=== PATIENT | female | born 1965 | race Caucasian/White ===

== ENCOUNTER 2023-11-07 12:46 | Emergency (ER) | payer OTHER, SELFPAY ==
[2023-11-07 13:19] VITALS: BP 132/77; PULSE 78; RESP 18; TEMP 36.6; O2SAT 96; BMI 33.7
--- NOTE | 2023-11-07 13:44 | CRLHL7_ITS ---
For Patients: As a result of the Century Cures Act, medical imaging exams and procedure reports are released immediately into your electronic medical record. You may view this report before your referring provider. If you have questions, please contact your health care provider. Indication: Trauma. Technique: Left knee, 3 views. Comparison: None. Findings/Impression: Bones: Alignment is normal. No displaced fractures or bone lesions. Joint spaces: Mild tricompartmental degenerative changes. Small joint effusion. Soft tissues: Unremarkable. Dictated by Lucio Thomas MD @ 11/07/2023 2:43:08 PM (Electronically Signed)
--- NOTE | 2023-11-07 13:47 | ED_ITS ---
HPI - General Adult General Date Seen: 11/07/23 Chief complaint: Extremity Pain/Injury, Lower Stated complaint: LT lower extremity pain Time Seen by Provider: 11/07/23 13:46 History of Present Illness HPI narrative: 58-year-old female presenting to the ER today for left knee pain. It has been present for about the past 10 days or so. No known injury. She says she has a known history of arthritis affecting her neck and spine. She her doctor, Dr. Olguin, at the [facility] has done x-rays of her knees and she has been told that she does not have much arthritis there. About a week and half ago her left knee really started hurting. It seems like it hurts deep inside the knee. It is not too painful while she is sitting down and she is able to flex and extend without pain however whenever she gets up to walk she gets a burning pain inside her knee. It is not been swollen. Also Her calf is not been swollen. No redness. No pain down into her calf for up into her quads or hamstring or thigh. No fevers or chills. She has been trying to treat the pain with naproxen 500 mg tablets twice daily but she says they are just not helping. She does a lot of walking and bending and twisting and lifting at work and. The pain got to the point today where she just could not take it so she came here to the ER. Related Data Home Medications ?Medication ?Instructions ?Recorded ?Confirmed amlodipine 5 mg tablet 5 mg PO DAILY 11/07/23 11/07/23 clonidine HCl 0.1 mg tablet 0.1 mg PO QHS 11/07/23 11/07/23 lorazepam 0.5 mg tablet 0.5 mg PO BID-TID PRN 11/07/23 11/07/23 metformin 1,000 mg tablet 1,000 mg PO DAILY 11/07/23 11/07/23 metoprolol tartrate 25 mg tablet 25 mg PO BID 11/07/23 11/07/23 multivitamin-ferrous 1 tab PO DAILY 11/07/23 11/07/23 fumarate-folic acid 18 mg-400 mcg tablet (One Daily Multivitamin with Iron (folic acid)) naproxen 500 mg tablet 500 mg PO Q8-12H PRN 11/07/23 11/07/23 paroxetine HCl 20 mg tablet (Paxil) 60 mg PO DAILY 11/07/23 11/07/23 pregabalin 75 mg capsule 75 mg PO BID 11/07/23 11/07/23 trazodone 50 mg tablet 50 mg PO DAILY 11/07/23 11/07/23 Allergies Allergy/AdvReac Type Severity Reaction Status Date / Time aspartame Allergy Severe Anaphylaxis Verified 11/07/23 13:35 Penicillins Allergy Severe Anaphylaxis Verified 11/07/23 13:35 Iodinated Contrast Media Allergy Intermediate Rash Verified 11/07/23 13:35 lisinopril Allergy Intermediate Hives Verified 11/07/23 13:35 [facility] Social History Smoking Status: Unknown if ever smoked How often do you have a drink containing alcohol: never How often do you have six or more drinks on one occasion: Never AUDIT-C Alcohol total score: 0 Non-prescribed substance use: denies use Exam Narrative: Exam Narrative: Constitutional: Appears well-developed and well-nourished. Non-toxic appearing. Very polite. HENT: Head: Atraumatic. No signs of injury. Nose: No nasal discharge. Mouth/Throat: Mucous membranes are moist. Pharynx is normal. Tonsils symmetric. Uvula midline. Airway patent. Eyes: Conjunctivae normal and EOM are normal. Pupils are equal, round, and reactive to light. Right eye exhibits no discharge. Left eye exhibits no discharge. No icterus. Neck: Normal range of motion. Neck supple. No adenopathy. No stridor. Cardiovascular: Normal rate and regular rhythm. No murmur heard. No murmurs, rubs, or gallops. Brisk capillary refill Pulmonary/Chest: Effort normal. No stridor. No respiratory distress. No wheezes.No rhonchi. No rales. No retractions. Abdominal: Soft. Bowel sounds are normal. No distension. No mass. There is no tenderness. There is no rebound and no guarding. Musculoskeletal: Upper extremities normal bilaterally-Normal range of motion. No edema. No tenderness. No deformity. Pelvis stable. Hips nontender. Right lower extremity: Quad, hamstring, femur, knee, patella, calf, kruse, ankle, foot nontender. Normal range of motion in her knee. No ligamentous laxity affecting ACL, PCL, MCL, LCL. Left lower extremity: Quad, hamstring, femur, kruse, calf, ankle, Achilles, foot are nontender. Normal inspection of the knee. No warmth. No rash. No bruising. No visible or palpable joint effusion. She has full range of motion from full extension to just beyond 90?. No ligamentous laxity of the ACL, PCL, LCL, MCL. No clicking or grinding of the joint during exam. No palpable effusion. No redness. No warmth. When she ambulates she has pain in the knee and limps on her left leg.. Neurological: Alert. Normal strength. No cranial nerve deficit or sensory deficit. Coordination normal. GCS eye subscore is 4. GCS verbal subscore is 5. GCS motor subscore is 6. Skin: Skin is warm. No rash noted. Const: Vital Signs, click to edit/add: Vital Signs - 24 hr 11/07/23 13:19 Temperature 97.8 F Pulse Rate [Pulse Oximeter] 78 Respiratory Rate 18 Blood Pressure [Ri t Upper Arm] 132/77 Pulse Oximetry 96 Oxygen Delivery Me thod Room Air Course Vital Signs Vital signs: Initial Vital Signs Temperature 97.8 F 11/07/23 13:19 Temperature Source Temporal Artery Scan 11/07/23 13:19 Pulse Rate 78 11/07/23 13:19 Pulse Rhythm Regular 11/07/23 13:19 Pulse Strength 3+ Normal 11/07/23 13:19 Respiratory Rate 18 11/07/23 13:19 Blood Pressure 132/77 11/07/23 13:19 Blood Pressure Mean 95 11/07/23 13:19 Blood Pressure Position Sitting 11/07/23 13:19 Pulse Oximetry 96 11/07/23 13:19 Oxygen Delivery Method Room Air 11/07/23 13:19 Vital Signs Temperature 97.8 F 11/07/23 13:19 Pulse Rate 78 11/07/23 13:19 Respiratory Rate 18 11/07/23 13:19 Blood Pressure 132/77 11/07/23 13:19 Pulse Oximetry 96 11/07/23 13:19 Oxygen Delivery Method Room Air 11/07/23 13:19 Temperature 97.8 F 11/07/23 13:19 Pulse Rate 78 11/07/23 13:19 Respiratory Rate 18 11/07/23 13:19 Blood Pressure 132/77 11/07/23 13:19 Pulse Oximetry 96 11/07/23 13:19 Oxygen Delivery Method Room Air 11/07/23 13:19 Medical Decision Making MDM Narrative Medical decision making narrative: Very polite 58-year-old female presenting to the ER today with a 10 day history of atraumatic left knee pain. X-rays are obtained by nurses at triage and are negative for any acute fracture. There is mild tricompartmental arthritis per Radiology on the x-ray as well as a small joint effusion. Suspect that she may have a flare of arthritis in her knee with an associated refusing causing her pain. Other causes for the joint effusion are considered. There is no redness or warmth to suggest a septic joint. Consider possible gout. She does report that she has a history of elevated uric acid levels on blood tests on her primary office. However she does not have redness or warmth to the joint as he would typically expect with gout. In any case although there is a small e ffusion noted on x-ray I am unable to appreciate any effusion on my clinical exam and I do not think there would be enough fluid here for me to successfully attempt arthrocentesis. Will arrange outpatient follow-up with orthopedics for further evaluation. Perhaps they would be able to do arthrocentesis and/or a cortisone injection, as needed. Patient has supplies of a knee brace and crutches at home and does not want post from the ER. She will continue on naproxen for pain control. We discussed prescription pain killers but the patient declines. She may add acetaminophen if needed. Also discussed rest, ice. Patient does not want a note for work. She has a shift at work tomorrow and has the remainder of the weekend off and she think should be able to get through that. She is agreeable to the plan of care for outpatient orthopedic follow-up. Imaging Data right knee xray: Attestation: I have reviewed the pertinent imaging results. My impression: No acute fracture. Radiologist's impression: Findings/Impression: Bones: Alignment is normal. No displaced fractures or bone lesions. Joint spaces: Mild tricompartmental degenerative changes. Small joint effusion. Soft tissues: Unremarkable. Discharge Plan Discharge Clinical Impression: Acute knee pain Patient Disposition: Home, Self-Care Condition: Stable Instructions: Crutch Instructions (ED), Knee Pain (ED) Additional Instructions: please follow-up with the [facility]. Please call [phone] today to schedule an ER follow-up visit. Please come back to the ER right away if you have any problems especially worsening or severe uncontrolled pain, new redness or increasing swelling of your knee, if you have fever or chills, or any other problems. Use your crutches from home or knee brace to help support your knee and rested. Continue using naproxen twice daily as needed. You can also add Tylenol if needed for pain. Prescriptions: No Action naproxen 500 mg tablet 500 mg PO Q8-12H PRN One Daily Multivit-Iron(folic) 18-400 mg-mcg tablet 1 tab PO DAILY trazodone 50 mg tablet 50 mg PO DAILY pregabalin 75 mg capsule 75 mg PO BID paroxetine HCl [Paxil] 20 mg tablet 60 mg PO DAILY lorazepam 0.5 mg tablet 0.5 mg PO BID-TID PRN clonidine HCl 0.1 mg tablet 0.1 mg PO QHS amlodipine 5 mg tablet 5 mg PO DAILY metoprolol tartrate 25 mg tablet 25 mg PO BID metformin 1,000 mg tablet 1,000 mg PO DAILY Stand Alone Forms: [employer] Info Instructions
== END 2023-11-07 15:36 | disposition home or self-care (01) ==
PROVIDERS: Emergency Provider Emergency Medicine; PCP Physician Assistant
DX: M25.562 Pain in left knee (principal)
CPT/HCPCS: 73562; 99282; 99283

== ENCOUNTER 2023-11-19 09:53 | Outpatient (CLI) | payer OTHER, SELFPAY ==
--- NOTE | 2023-11-19 10:15 | MR_ITS ---
[address] [address] Phone:?[phone] Fax:?[phone] Referring Physician Information: Melchor Delgado [address] [facility] [address] Phone:?[phone] Fax:?[phone] Patient:Leila Vanegas D.O.B:?1965 Sex:?Female Phone:?[phone] [facility] MRN:?[id number] Exam Date:?11/19/2023 EXAM: MRI of the LEFT KNEE, without contrast CLINICAL INFORMATION: Female, 58 years old, with left knee pain. INDICATION: Evaluate for internal derangement. PRIOR SURGERY: None reported. PLAIN FILMS: None available. COMPARISONS: No prior MRIs available. TECHNICAL INFORMATION: Using a 1.5T MR scanner and a localizing surface coil: sagittals: PD, PDFS coronals: PD, T2FS axials: PD, PDFS SEDATION: None CONTRAST: None FINDINGS: Knee joint: Effusion: Mild-moderate left knee effusion, with synovitis. Popliteal cyst: Small, unruptured popliteal (Dunlap's) cyst. Loose bodies: None. Subcutaneous and extra-articular soft tissues: Mild-moderate anterior subcutaneous soft tissue swelling extending from the patella to the tibial tubercle. Ligaments: ACL: Intact ACL anteromedial and posterolateral bundles, without sprain or tear. PCL: Intact PCL, without acute or chronic injury. MCL: Intact MCL superficial and deep layers, without injury. LCL: Intact LCL, without injury. Posterolateral corner: No posterolateral corner soft tissue injury. Popliteus, biceps femoris, iliotibial band, popliteofibular ligament and lateral gastrocnemius are intact. Posteromedial corner: No posteromedial corner soft tissue injury. Semimembranosus, pes anserine tendons and posterior oblique ligament are without injury, tendinopathy or bursitis. Extensor mechanism: Patellar tendon: Intact, without tendinopathy. Quadriceps tendon: Intact, without tendinopathy. Retinacula: Medial and lateral retinacula are intact. Fat pads: Mild edema-like signal throughout the knee fat pads, in keeping with synovitis. Medial compartment: Medial meniscus: Oblique horizontal undersurface tearing of the posterior horn and body of the medial meniscus measuring 1.9 cm (sagittal PDFS series 6 images 9-13 and coronal STIR series 8 images 19-21). Additionally, there is abnormal signal and irregularity throughout the posterior meniscal capsular junction. There is also a 1.7 x 0.6 x 0.9 cm region of poorly defined soft tissue thickening adjacent to the anterior horn/root of the medial meniscus (sagittal PD series 5 image 13 and coronal PD series 7 image 10). No meniscal extrusion or parameniscal cyst. Medial femoral condyle & tibial plateau: Broad-based grade II/III chondromalacia throughout the central, weightbearing aspect of the medial compartment, with mild marginal osteophytosis. Lateral compartment: Lateral meniscus: Intrasubstance degeneration fraying of the posterior root of the lateral meniscus, without discrete lateral meniscal tearing. Lateral femoral condyle: No chondromalacia or osteochondral abnormality. Lateral tibial plateau: No chondromalacia or osteochondral abnormality. Patellofemoral joint: Patella: Broad-based grade II/III chondromalacia of the medial facet and median ridge of the patella, with mild marginal osteophytosis. Trochlea: Broad-based grade II/III chondromalacia of the medial facet and central sulcus, with mild marginal osteophytosis. Proximal tibiofibular joint: Unremarkable, without evidence of ligament sprain injury, joint effusion or adjacent marrow edema. Bones: No stress/occult fractures or other marrow edema/pathology. IMPRESSION: 1. Oblique horizontal undersurface tear of the posterior horn and body of the medial meniscus measuring 1.9 cm, with a superimposed posterior meniscocapsular junction sprain. Additionally, there is a 1.7 x 0.6 x 0.9 cm region of poorly defined soft tissue thickening adjacent to the anterior horn/root, which could reflect scar tissue or nodular synovitis/PVNS. 2. Mild osteoarthritis of the medial and patellofemoral compartments. 3. Mild-moderate knee joint effusion with synovitis and a small, unruptured popliteal (Dunlap's) cyst. 4. No lateral meniscal tear or osteochondral abnormality of the lateral compartment. 5. No cruciate or collateral ligament sprain/tear. BC Electronically signed on 11/19/2023 2:45:00 PM by Harpreet Smith M.D.
== END 2023-11-19 09:54 | disposition home or self-care (01) ==
LOC: MRI 09:53
PROVIDERS: PCP Physician Assistant; Visit Provider Physician Assistant
DX: M25.562 Pain in left knee (principal); S83.241A Other tear of medial meniscus, current injury, right knee, initial encounter; M17.11 Unilateral primary osteoarthritis, right knee; M25.461 Effusion, right knee
CPT/HCPCS: 73721

== ENCOUNTER 2023-12-13 06:57 | Day surgery (SDC) | payer OTHER, SELFPAY ==
[2023-12-13] VITALS (11 sets, daily range): BP systolic 113–150; BP diastolic 58–93; PULSE 67–75; RESP 16; TEMP 36.4–37.2; O2SAT 90–95; BMI 34.2
[2023-12-13] MEDS: LACTATED RINGERS 1000 ML 1,000 ML 100 ML IV (08:00)
[2023-12-13] MEDS: SODIUM CHLORIDE 0.9 % (FLUSH) 10 ML SYRINGE IVF (08:07)
--- NOTE | 2023-12-13 08:15 | W.ANESCHARGE ---
Anesthesia Charges Start Date/Time Anesthesia Start Date: 12/13/23 Anesthesia Start Time: 09:16 Stop Date/Time Anesthesia Stop Date: 12/13/23 Anesthesia Stop Time: 10:11
[2023-12-13] MEDS: BUPIVACAINE 0.25% 30 ML INJECTION (09:59)
--- NOTE | 2023-12-13 10:00 | P.ORPRC_ITS ---
Procedure Note Date of procedure: 12/13/23 Procedure: PREOPERATIVE DIAGNOSIS: Left knee medial meniscus tear POSTOPERATIVE DIAGNOSIS: Left knee medial meniscus tear NAME OF OPERATION: Left knee arthroscopic partial medial meniscectomy SURGEON: Vincent Salinas MD SUPERVISOR TYPE DISK QUALITY CONTROL: FAUSTINO Moore ANESTHESIA: Spinal ESTIMATED BLOOD LOSS: 0 mL COMPLICATIONS: None SPECIMENS: None DRAINS: None PREOPERATIVE ANTIBIOTICS: Ancef 2 gram INDICATIONS: The patient is a 58-year-old with a history of left knee medial pain. MRI scan is consistent with a medial meniscus tear. Despite appropriate nonoperative management, including activity modification, antiinflammatories, [id number] pain medication, bracing, physical therapy, and injections they continue to have pain and disability. Operative intervention was offered. The risks, benefits and expected outcomes were discussed in detail. These included but were not limited to: Infection, bleeding, injury to blood vessel or nerve, venous thromboembolism. All questions were answered to their satisfaction. PROCEDURE: Spinal anesthesia was administered. The patient was placed supine on the operating room table. The left lower extremity was prepped and draped in the usual sterile fashion. The limb was exsanguinated with the Mateus bandage. The pneumatic tourniquet was inflated to 300 mmHg. A standard anterolateral portal was established. The arthroscope was introduced. The working portal was established anteromedially. Diagnostic arthroscopy was performed with findings as follows: The suprapatellar pouch is normal. Articular surface on the patella shows diffuse grade 2/3 change. Articular surface on the trochlea shows a focal area of grade 3 change centrally. The medial gutter is normal. The medial compartment shows diffuse grade 3 change on the medial femoral condyle, grade 2 change on the medial tibial plateau. The medial meniscus has a complex degenerative tear of the undersurface of the posterior horn, into the midbody. This primarily consists of horizontal cleavage tearing. The leading edge is intact, the root is intact. The notch shows the ACL to be intact. The lateral compartment shows normal articular cartilage on the lateral femoral condyle and lateral tibial plateau. The lateral meniscus is normal. The lateral gutter is normal. The posterior horn of the medial meniscus was debrided to a stable base using a combination of baskets and ashlie through both portals. Unstable chondral flaps on the medial femoral condyle, were debrided with the shaver through both portals, taken to a stable base. Arthroscopic instruments were removed, the portal sites were Steri-Stripped closed, the knee was infiltrated with 30 mL of 0.25% Marcaine without epinephrine. A dry dressing was applied, the tourniquet was released. Sponge and needle counts were correct x 2. The patient tolerated the procedure well. There were no apparent complications. They were carefully transferred to the hospital bed and taken to the postanesthesia care unit in satisfactory condition. PLAN: The patient will be discharged to home. They may weightbear as tolerates. Range of motion will be unrestricted. They will follow up in the office next week for a wound check.
--- NOTE | 2023-12-13 10:13 | W.ANESCHARGE ---
Anesthesia Charges Start Date/Time Anesthesia Start Date: 12/13/23 Anesthesia Start Time: 09:16 Stop Date/Time Anesthesia Stop Date: 12/13/23 Anesthesia Stop Time: 10:11
== END 2023-12-13 11:50 | disposition home or self-care (01) ==
LOC: OR 06:58
PROVIDERS: PCP Physician Assistant; Visit Provider Orthopaedic Surgery
PROC: (CPT 29882; principal; 2023-12-13 08:45)
DX: M23.222 Derangement of posterior horn of medial meniscus due to old tear or injury, left knee (principal)
CPT/HCPCS: 29881; 01400; J0665; J1100; J1885; J2250; J2405; J2704; J3010; J7120

== ENCOUNTER 2024-02-25 13:10 | Outpatient (CLI) | payer OTHER, SELFPAY ==
--- NOTE | 2024-02-25 13:45 | MR_ITS ---
[address] [address] Phone:?[phone] Fax:?[phone] Referring Physician Information: Melchor Delgado [address] [facility] [address] Phone:?[phone] Fax:?[phone] Patient:Leila Vanegas D.O.B:?1965 Sex:?Female Phone:?[phone] [facility] MRN:?[id number] Exam Date:?02/25/2024 EXAM: MRI OF THE LEFT KNEE CLINICAL INFORMATION: The patient is a 58-year-old with left knee pain. Evaluate for meniscal tear. PRIOR SURGERY: The patient has a history of prior surgery to the region. COMPARISON STUDIES: Comparison is made to the prior MRI examination dated 11/19/2023. TECHNICAL INFORMATION: Imaging was performed on a high-field, 1.5 Fanny MR scanner. Sagittal proton-density and fat-suppressed proton-density imaging was performed in addition to coronal proton-density and coronal STIR imaging. Axial proton-density and axial fat-suppressed T2 imaging was also produced. FINDINGS: Articular/Extraarticular collections: Effusion: Moderate. Popliteal cyst: Moderate, seen on sagittal series 6 image 10 and on axial series 4 image 18. Adjacent soft tissue edema and/or hemorrhage can be seen on sagittal series 6 image 9. Loose bodies: No well-defined intra-articular loose bodies are present. Subcutaneous and extraarticular soft tissues: Nonspecific subcutaneous soft tissue edema and/or hemorrhage can be seen along the anterior aspect of the knee on sagittal series 6 image 18. Osseous structures: There is a broad-based area of increased fat-suppressed signal intensity seen involving the medial tibial plateau on coronal series 8 image 18 and on sagittal series 6 image 10. A curvilinear area of low signal intensity along the central to posterior weightbearing surfaces can be seen on sagittal series 5 image 10, measuring 10 mm in greatest dimension, in keeping with subcortical fracture. The findings are consistent with a traumatic or stress injury of the medial tibial plateau. No depression or displacement of the articular surfaces can be seen. Additional reactive marrow edema within the medial femoral condyle is present. There is subcortical cystic change along the far posterior articular surfaces of the medial femoral condyle on sagittal series 6 image 10, in keeping with chondromalacia and chondral loss discussed below. Bony changes along the medial articular surfaces of the patella can be seen on axial series 4 image 10, in keeping with chondromalacia and chondral loss described below. No other bony abnormalities about the knee are identified. Ligamentous structures: ACL: Intact and normal in appearance. PCL: Intact and normal in appearance. MCL: Intact and normal in appearance. LCL: Intact and normal in appearance. Posterolateral corner: Intact and normal in appearance. Posteromedial corner: No posteromedial corner soft tissue injury. Semimembranosus and pes anserine tendons demonstrate no tendinopathy or associated bursitis. Extensor mechanism/Patellar retinacular structures: Patellar tendon: Intact, without tendinopathy. Quadriceps tendon: Intact, without tendinopathy. Retinacula: The medial and lateral retinacula are intact. The medial patellofemoral ligament is intact. Medial compartment: Medial meniscus: The medial meniscus is abnormal in appearance. There is evidence for prior partial medial meniscectomy. Areas of recurrent or residual tearing of the posterior horn of the medial meniscal remnant are present on sagittal series 5 images 12 and 13, progressed in appearance when compared to the prior examination. Additional recurrent or residual inferior surface tearing of the middle one third of the medial meniscus can be seen. The anterior horn of the medial meniscal remnant appears intact. No definite parameniscal cyst formation is identified. Medial femoral condyle: Broad-based changes of grade II to III chondromalacia can be seen along the central and posterior articular surfaces of the medial femoral condyle with underlying bony change. Medial tibial plateau: Grade II to III chondromalacia can be seen along the weightbearing surfaces of the medial tibial plateau. Lateral compartment: Lateral meniscus: No evidence for lateral meniscal tearing is present. No evidence for parameniscal cyst formation can be seen. Lateral femoral condyle: No chondromalacia, chondral defect, or osteochondral abnormality. Lateral tibial plateau: No chondromalacia, chondral defect, or osteochondral abnormality. Patellofemoral compartment: Patella: Full-thickness and near full-thickness chondral loss can be seen involving the medial patellar facet and patellar apex on axial series 4 image 10, measuring 10 mm in mediolateral dimension. The area measures approximately 12 mm in craniocaudal dimension. Underlying bony changes are seen. No chondral injuries of the lateral patellar facet are noted. Trochlea: Grade II chondromalacia can be seen along the central and medial articular surfaces of the femoral trochlea. Neurovascular: No definite neurovascular abnormalities are seen. CONCLUSION: 1. Traumatic versus stress injury involving the medial tibial plateau with extensive marrow edema and subcortical fracture. 2. Evidence for prior partial medial meniscectomy can be seen. There are areas of recurrent or residual tearing of the middle and posterior portions of the medial meniscal remnant. 3. No lateral meniscal tearing is present. 4. 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 5. The cruciate and collateral ligaments appear intact. 6. Moderate knee joint effusion and moderate popliteal cyst. A[facility] Electronically signed on 02/26/2024 9:08:00 AM by Gary Mensah M.D.
== END 2024-02-25 13:11 | disposition home or self-care (01) ==
LOC: MRI 13:11
PROVIDERS: PCP Physician Assistant; Visit Provider Physician Assistant
DX: M25.562 Pain in left knee (principal); S83.242D Other tear of medial meniscus, current injury, left knee, subsequent encounter; M94.262 Chondromalacia, left knee; M25.462 Effusion, left knee; Z98.890 Other specified postprocedural states; Z87.828 Personal history of other (healed) physical injury and trauma
CPT/HCPCS: 73721

== ENCOUNTER 2024-12-10 13:00 | Outpatient (RCR) | payer OTHER, SELFPAY | END 2024-12-10 14:00 | disposition home or self-care (01) | PROVIDERS: PCP Physician Assistant; Visit Provider Orthopaedic Surgery | DX: M25.562 Pain in left knee (principal); Z47.1 Aftercare following joint replacement surgery; M62.81 Muscle weakness (generalized); R26.9 Unspecified abnormalities of gait and mobility; Z96.652 Presence of left artificial knee joint; Z51.89 Encounter for other specified aftercare | CPT/HCPCS: 97110; 97116; 97140; 97161 ==